=== PATIENT | female | born 1965 | race Caucasian/White ===

== ENCOUNTER 2017-04-20 15:07 | Inpatient (IN) | payer OTHER ==
[~2017-04-20] VITALS: Ht 160 cm; Wt 59.4 kg
[~2017-04-20 15:07] MED LIST: ASPIRIN325 PO; ATORVASTATIN CA40 MG PO; BENTYL 20 MG TA20 M1 PO; CLONAZEPAM 1 MG1 M1 PO; COLACE100 MG PO; CYMBALTA20 MG PO; CYMBALTA60 MG PO; GABAPENTIN 100100 MG PO; KLONOPIN1 MG PO; LEVOTHYROXIN0.175 MG PO; LEVOTHYROXINE 0.15MG PO; LIDODERM 5%1 PATC1 TOP; LOPRESSOR25 PO; MIRALAX17 GM PO; MOBIC15 MG PO; NEURONTIN 300300 M1 PO; ONDANSETRON HCL4 M2 PO; PERCOCET 10-321 EACH PO; PLAVIX 75 MG TA75 M1 PO; PROTONIX40 M1 PO; SENOKOT-S1 TA1 PO; TEARS NATURALE1 EACH; TOPAMAX 100 MG100 MG PO; ZETIA10 MG PO; ZOCOR40 MG PO
[2017-04-20 19:14] VITALS: BP 117/86
[2017-04-20 23:24] LABS: FOLIC ACID 9.1 ng/mL (8.6-58.9)
[2017-04-20 23:49] VITALS: BP 116/64
[2017-04-21] VITALS: BP 116/64
[2017-04-21 00:59] LABS: TSH 227.143 uIU/mL (0.358-3.740)
[2017-04-21 04:01] VITALS: BP 128/69
[2017-04-21 06:57] LABS: HEMATOCRIT 37.4 % (37.0-47.0); HEMOGLOBIN 12.2 gm/dL (12.0-15.0); MCH 28.4 pg (26.0-34.0); MCHC 32.7 g/dL (28.0-37.0); MCV 86.8 fL (80.0-100.0); RBC 4.31 mil/uL (4.20-5.00); RDW 14.9 % (10.5-14.5); WBC 13.5 thou/uL (4.0-11.0)
[2017-04-21 08:00] VITALS: BP 125/60
[2017-04-21 08:15] LABS: ALBUMIN 3.6 g/dL (3.4-5.0); ALKALINE PHOSPHATASE 83 U/L (46-116); ANION GAP 9 mmol/L (7-16); BUN 9 mg/dL (7-18); CALCIUM 9.1 mg/dL (8.5-10.1); CHLORIDE 108 mmol/L (98-107); CHOLESTEROL 302 mg/dL (<200); CO2 25 mmol/L (21-32); CREATININE 0.8 mg/dL (0.6-1.0); GLUCOSE 96 mg/dL (74-106); HDL CHOLESTEROL 40 mg/dL (>40); LDL CHOLESTEROL 221 mg/dL (<100); POTASSIUM 3.9 mmol/L (3.5-5.1); SGOT 16 U/L (15-37); SGPT 19 U/L (30-65); SODIUM 142 mmol/L (136-145); TC:HDL 7.6 Ratio (Not establshd); TOTAL BILIRUBIN 0.3 mg/dL (<0.1-1.0); TOTAL PROTEIN 6.9 g/dL (6.4-8.2); TRIGLYCERIDE 205 mg/dL (<150); TROPONIN-I < 0.04 ng/mL (<0.04-0.07); VLDL 41 mg/dL (<40)
[2017-04-21 11:00] VITALS: BP 124/70
[2017-04-21 15:07] VITALS: BP 125/70
[2017-04-21 19:11] VITALS: BP 125/74
[2017-04-22 00:08] LABS: GLYCOHEMOGLOBIN (HGB A1C) 5.4 % (4.8-5.6)
[2017-04-22 03:49] VITALS: BP 125/76
[2017-04-22 12:14] VITALS: BP 215/110
[2017-04-22 16:23] VITALS: BP 128/79
[2017-04-22 19:30] VITALS: BP 114/76
[2017-04-23 04:30] VITALS: BP 103/55
[2017-04-23 04:54] LABS: HEMATOCRIT 38.9 % (37.0-47.0); HEMOGLOBIN 12.7 gm/dL (12.0-15.0); MCH 28.7 pg (26.0-34.0); MCHC 32.7 g/dL (28.0-37.0); MCV 87.9 fL (80.0-100.0); RBC 4.43 mil/uL (4.20-5.00); RDW 14.7 % (10.5-14.5); WBC 11.2 thou/uL (4.0-11.0)
[2017-04-23 05:12] LABS: ALBUMIN 3.4 g/dL (3.4-5.0); CALCIUM 9.7 mg/dL (8.5-10.1); CREATININE 1.2 mg/dL (0.6-1.0); POTASSIUM 3.5 mmol/L (3.5-5.1); TOTAL BILIRUBIN 0.4 mg/dL (<0.1-1.0); TOTAL PROTEIN 7.2 g/dL (6.4-8.2)
[2017-04-23 07:26] VITALS: BP 102/80
[2017-04-23 12:23] VITALS: BP 133/78
[2017-04-23 14:47] VITALS: BP 133/78
== END 2017-04-23 15:37 | disposition home or self-care (01) | DRG 70 ==
LOC: 3W 15:07
PROVIDERS: Hospitalist; Nurse Practitioner Family
DX: G93.40 Encephalopathy, unspecified (principal); N17.1 Acute kidney failure with acute cortical necrosis; G43.909 Migraine, unspecified, not intractable, without status migrainosus; I25.10 Atherosclerotic heart disease of native coronary artery without angina pectoris; F41.9 Anxiety disorder, unspecified; F17.210 Nicotine dependence, cigarettes, uncomplicated; E78.5 Hyperlipidemia, unspecified; G62.9 Polyneuropathy, unspecified; E03.9 Hypothyroidism, unspecified; F32.9 Major depressive disorder, single episode, unspecified; F11.10 Opioid abuse, uncomplicated; E05.00 Thyrotoxicosis with diffuse goiter without thyrotoxic crisis or storm; G44.89 Other headache syndrome; Z95.1 Presence of aortocoronary bypass graft; Z86.73 Personal history of transient ischemic attack (TIA), and cerebral infarction without residual deficits; Z88.1 Allergy status to other antibiotic agents; Z88.2 Allergy status to sulfonamides; Z88.6 Allergy status to analgesic agent; Z88.0 Allergy status to penicillin; Z88.8 Allergy status to other drugs, medicaments and biological substances; Z91.14 Patient's other noncompliance with medication regimen; Z90.49 Acquired absence of other specified parts of digestive tract; Z79.82 Long term (current) use of aspirin; Z79.1 Long term (current) use of non-steroidal anti-inflammatories (NSAID); Z79.899 Other long term (current) drug therapy
CPT/HCPCS: 10779